=== PATIENT | female | born 1935 | race Caucasian/White ===

== ENCOUNTER 2016-07-12 18:21 | Inpatient (IN) | payer MEDICARE ==
--- NOTE | ~2016-07-12 | CO ---
Unit #: [id number] #: [id number] Patient: TESSIE ARTEAGA [id number] [address] [place], [place] [address] [id number] I MR#: [id number] NAME: TESSIE ARTEAGA. ROOM: 309 Age: 80 Sex: F Admission Date: 07/12/2016 : 1935 Attending Physician: Nicolasa Lilly M.D. Primary Care Physician: Tulio Schreiber D.O. Consultation Date: 07/13/2016 CONSULTATION REPORT CHIEF COMPLAINT Anemia. HISTORY OF PRESENT ILLNESS This is a 80-year-old lady, who has some dementia, who was admitted for severe anemia with a hemoglobin of 4.2. She has been transfused. She denies any abdominal pain or GI bleeding. She does have a history of a polyp with high-grade dysplasia of the right colon that has been resected in the past. PAST MEDICAL HISTORY Significant for hypertension, reflux, dementia, elevated lipids, valvular heart disease. PAST SURGICAL HISTORY She has undergone a prior ileocolic resection. She has also had , cholecystectomy, and multiple hernia repairs. She has also undergone a bladder repair. ALLERGIES She has no known drug allergies. MEDICATIONS Please see med rec list for the list of medications. Her only blood thinner is aspirin. SOCIAL HISTORY She denies any tobacco or alcohol use. FAMILY HISTORY Negative for cancer. REVIEW OF SYSTEMS Limited secondary to dementia. PHYSICAL EXAMINATION VITAL SIGNS: Temperature is 98.2, heart rate 72, respiratory rate 16, blood pressure is 141/71. GENERAL: She is in no acute distress. HEENT: Pupils are equal and reactive to light and accommodation, and her extraocular muscles are intact. NECK: Without masses or bruits. LUNGS: Show good breath sounds bilaterally with equal air exchange. CARDIAC: Shows regular rate and rhythm without murmur. Unit #: [id number] #: [id number] Patient: TESSIE ARTEAGA ABDOMEN: Soft, nondistended, and nontender with no organomegaly. EXTREMITIES: Without edema or cyanosis. NEUROLOGIC: She is alert and oriented. There are no focal deficits. DIAGNOSTIC STUDIES LABORATORY RESULTS: White blood count 10,000, hemoglobin 7.2. Total bilirubin is elevated at 3.2 this morning, which on her prior bilirubin yesterday, she had higher indirect component. Her other LFTs are normal. IMPRESSION This is a lady who has a history of a polyp with high-grade dysplasia. This has been resected as well as a history of other polyps. She has severe anemia and elevated LFTs. PLAN She has already undergone transfusion and her hemoglobin improved to 7.2 this morning. Our plan is to prep her today and set her up for upper and lower endoscopy tomorrow. I will also recheck her bilirubin tomorrow as well as a CEA level. Further recommendations are to follow. Dictated by... Yves Rivera III, M.D. VCL/refugio TD: 07/13/2016 07:07 JOB #: [id number] CONSULTATION REPORT Page 1 of 1 X Yves Rivera III, MD CONSULTATION REPORT
--- NOTE | ~2016-07-12 | CO ---
Unit #: [id number] #: [id number] Patient: TESSIE WYATT [id number] [address] [place], [place] [address] [id number] I MR#: [id number] NAME: TESSIE WYATT ROOM: 309 Age: 80 Sex: F Admission Date: 07/12/2016 : 1935 Attending Physician: Nicolasa Lilly M.D. Primary Care Physician: Tulio Schreiber D.O. Consultation Date: 07/15/2016 CONSULTATION REPORT REASON FOR CONSULTATION Elevated CA level. Iron deficiency anemia; please evaluate. HISTORY OF PRESENT ILLNESS Ms. Tessie Wyatt is 80 years old with a history of hypertension, admitted to the hospital from her primary care physician, Dr. Tulio Schreiber, when she was noted to have a hemoglobin of 4.3. Following admission, she has been transfused packed cells, has undergone an EGD and colonoscopy with the findings of some diverticulosis but no evidence of a bleeding lesion with improvement post transfusion. Her most recent CBC of today shows a hemoglobin of 7.3, an MCV of 70.3 and a platelet count of 252,000. Ms. Wyatt herself is not a good historian and has been a little confused, wandering from room to room today. From history, apparently she has been having shortness of breathing for many months. It is not clear whether she has ice craving or any other pica and tells me she has had anemia in the past, although she wanders off to discuss about (1) allergies. PAST HISTORY History of hypertension, apparently valvular heart disease, gastroesophageal reflux disease, hyperlipidemia, Alzheimer-type dementia. She has a history of multiple colonic polyps, undergoing right hemicolectomy September 19, 2011 with the finding of 5 tubular adenomas. She subsequently, in 2012, had additional polyps removed and, in 2010, underwent the right hemicolectomy with tubular adenoma with high-grade dysplasia in the right colon and the cecum. She has had tubular adenomas also in August of 2010. PAST SURGICAL HISTORY Colectomy, colostomy with reversal, Caesarian section, cholecystectomy, hernia with mesh repair and a bladder repair. ALLERGIES She has no known medication allergies. MEDICATIONS Current medications at admission, from records, are Lasix, Norvasc, isosorbide, atorvastatin, aspirin "81" mg, Aricept 10 mg for her Alzheimer-type dementia, doxazosin, Celexa, Remeron, vitamins C, D, E and B12. SOCIAL HISTORY She is a nonsmoker. Does not drink any alcohol. She lives with her oldest son. Unit #: [id number] #: [id number] Patient: TESSIE WYATT FAMILY HISTORY Family history is negative for bleeding disorders or cancer. REVIEW OF SYSTEMS Somewhat limited because patient is quite confused. CONSTITUTIONAL: Apparently no significant changes in weight. EYES: Negative. EARS, NOSE, MOUTH AND THROAT: Negative. CARDIOVASCULAR: shortness of breathing. No chest pain. RESPIRATORY: Shortness of breathing. GASTROINTESTINAL EXAM: Apparently no changes in bowel habits. GENITOURINARY: Negative. NEUROLOGIC: Forgetfulness. Tendency to wander and a diagnosis of Alzheimer-type dementia. SKIN: Negative. ALLERGIC/LYMPHATIC: Negative. ENDOCRINE: Negative. PSYCHIATRIC: Alzheimer-type dementia. PHYSICAL EXAMINATION GENERAL: She is a very pleasant elderly woman, awake, alert, oriented x2. VITAL SIGNS: Temperature is 98.4, pulse rate 76, respirations 18, blood pressure 139/59. HEENT EXAM: Pupils are equal and react well to light. She is pale but nonicteric. Mucous membranes are moist. NECK: Neck without adenopathy, JVD, thyromegaly. CARDIOVASCULAR SYSTEM: First and second heart sounds are heard and regular with soft systolic murmur. No gallops or rubs. LUNGS: Chest expansion is symmetric. Bilateral equal entry without any adventitious sounds. ABDOMEN: Incisions from multiple previous surgeries are well-healed. No liver or spleen palpable or any other organomegaly. Bowel sounds are active. EXTREMITIES: Extremities are warm with good pulses. No edema, cyanosis or clubbing. NEUROLOGIC: She is awake, alert and oriented x2 without any focal findings. DIAGNOSTIC STUDIES LABS: CBC as mentioned. Basic metabolic panel shows a BUN of 14, creatinine 0.9. CA level is 4.5. CBC at time of admission showed a white count of 8.5, hemoglobin 4.3, platelet count 271, MCV 60.4. ASSESSMENT AND PLAN Ms. Tessie Wyatt is 80 years old with history of mild Alzheimer-type dementia and a history of previous adenomatous polyposis, including a dysplastic polyp removed in 2010 and right hemicolectomy. She is admitted with severe anemia with negative colonoscopy and a history of aspirin "81" mg once daily. Her microcytic indices are certainly consistent with chronic iron deficiency. Her CA level is slightly elevated at 4.5. Discussed the situation with the patient. RECOMMENDATIONS 1. CT scan of the abdomen and pelvis to be done with p.o. and IV contrast in view of elevated CA level and history of multiple polyps. 2. Continue close surveillance for colonic polyps with another endoscopy in 3 years. 3. Ferrlecit 250 mg IV x1. Unit #: [id number] #: [id number] Patient: TESSIE WYATT 4. Ferrous sulfate 324 mg p.o. t.i.d. 5. If discharged, she can follow up as an outpatient. Dictated by... Dario Bains/zach TD: 07/15/2016 13:37 JOB #: [id number] CONSULTATION REPORT Page 1 of 1 X Tye Alexander MD X CONSULTATION REPORT
--- NOTE | ~2016-07-12 | OR ---
Unit #: [id number] #: [id number] Patient: TESSIE ARTEAGA [id number] [address] [place], [place] [address] [id number] I MR#: [id number] NAME: TESSIE ARTEAGA. ROOM: 309 Date of Procedure: 07/14/2016 Admission Date: 07/12/2016 Surgeon: Corby Souza M.D. : 1935 Attending Physician: Nicolasa Lilly M.D. Primary Care Physician: Tulio Schreiber D.O. OPERATIVE REPORT PREOPERATIVE DIAGNOSIS Anemia. POSTOPERATIVE DIAGNOSIS Anemia. PROCEDURES PERFORMED 1. Esophagogastroduodenoscopy. 2. Biopsy of antrum for Helicobacter pylori testing. 3. Colonoscopy to anastomosis in the area of the hepatic flexure. ANESTHESIA Monitored anesthesia care. FINDINGS The patient was found on upper endoscopy to have a large hiatal hernia and mild gastritis. On colonoscopy, the patient was found to have scattered diverticula and a normal anastomosis. SPECIMENS Sent to Pathology. COMPLICATIONS None apparent. CONDITION The patient tolerated the procedure well. INDICATIONS FOR PROCEDURE The patient is a 80-year-old female, who presented with severe anemia with a hemoglobin of 4.2. She presents at this time for evaluation by upper and lower endoscopy. DESCRIPTION OF PROCEDURE After obtaining informed consent, the patient was brought to the endoscopy suite. After adequate monitored anesthesia care, had the endoscope placed through the mouth into the upper esophagus under direct vision. It was advanced to the second portion of the duodenum without difficulty with the lumen always in view. The duodenum was within normal limits as was the duodenal bulb. The pylorus opened normally. There was some mild distal gastritis present and a biopsy was obtained for Helicobacter pylori testing. On retroflexion back to the GE junction, the patient was found Unit #: [id number] #: [id number] Patient: TESSIE ARTEAGA to have a large hiatal hernia. No other abnormalities were found in the proximal third, middle third, or incisura. On pulling back above the GE junction, there was no stenosis, stricture, or neoplasm seen. There was no significant esophagitis. The remaining portion of the esophagus was within normal limits. Laryngeal structures were grossly normal as viewed from above. At this point in time, the colonoscope was placed through the anus and slowly advanced to the level of the anastomosis in the area of the hepatic flexure without difficulty with the lumen always in view. The patient was status post right hemicolectomy. The anastomosis was widely patent and there was no abnormality seen. On pulling back from this area other than a few scattered diverticula, there was no abnormality seen in the transverse colon, splenic flexure, descending colon, sigmoid colon, or rectum. In the anastomosis, there appeared to be large diverticulum or perhaps some type of anastomosis in this area, but there was no abnormality seen other than this. On retroflexing in the rectum to the anorectal junction, there was no abnormality seen. The scope was removed without difficulty. The patient tolerated the procedure well and went from the endoscopy suite to the recovery area in stable condition. RECOMMENDATIONS Resume preop orders and medications and diet of choice and we will have Hematology evaluate the patient for further evaluation of her anemia. Dictated by... Dario Brody/refugio TD: 07/15/2016 07:08 JOB #: [id number] [facility] OPERATIVE REPORT Page 1 of 1 X Corby Souza MD X PROCEDURE OPERATIVE NOTE
--- NOTE | ~2016-07-12 | CT2 ---
[facility] A Service of [facility] RADIOLOGY TEXT RESULTS PATIENT: TESSIE ARTEAGA LOCATION: [facility] 309- : 37 UNIT #: [id number] AGE: [address]: Nicolasa Lilly MD SEX: F ORDER DR: [id number] [facility] [address] [facility]. [place], [place] [address] [id number] MR#: [id number] Acc #: [id number] NAME: TESSIE ARTEAGA. : 1935 SEX: F STUDY DATE/TIME: 07/15/2016 18:40 UNIT: A PCU ROOM: 309 STUDY DESCRIPTION: CT Abd and Pelv W Cont Attending Physician: Nicolasa Lilly M.D. Ordering Physician: Nicolasa Lilly M.D. Primary Care Physician: Tulio Schreiber D.O. MEDICAL IMAGING REPORT This report is preliminary unless electronic signature is present EXAM CT of the abdomen and pelvis with IV contrast. COMPARISON November 08, 2010. INDICATION 80-year-old female with anemia of uncertain etiology. Hemoglobin of 5 on July 12, 2016. History of diverticulitis requiring partial colonic resection and colostomy, post reversal. Prior bladder repair, hernia repair, cholecystectomy and . TECHNIQUE Axial CT imaging of the abdomen and pelvis was performed after IV administration of 100 mm of Isovue-370. Coronal and sagittal reformats were constructed. This CT exam was performed with one or more of the following radiation dose reduction techniques: automatic exposure control, adjustment of mA and/or kV according to patient size, and iterative reconstruction. FINDINGS Apparent fat-containing lesion in the dome of the right hepatic lobe measures up to 6 mm, grossly stable from October 2010, perhaps reflecting small adenoma or focal fat. Changes of cholecystectomy again noted. Changes of anterior abdominal wall hernia repair noted bilaterally. There is stable diastasis of the midline abdominal wall. There is stable abutment of the transverse colon to the inferior midline abdominal wall, suggestive of adhesive disease. No evidence of colonic obstruction. The appendix is not seen and there is suture material at the cecum consistent with prior appendectomy. Prior sigmoid resection is noted. There is normal bowel caliber. No suspicious colonic lesions are seen. There are calcified splenic granulomas. Adrenal glands are within normal limits. Pancreatic head, uncinate process and to a lesser extent the body have STS. [facility] A Service of [facility] RADIOLOGY TEXT RESULTS PATIENT: TESSIE ARTEAGA LOCATION: [facility] 309-01 : 37 UNIT #: [id number] AGE: [address]: Nicolasa Lilly MD SEX: F ORDER DR: somewhat of a hypoattenuating appearance and appear mildly expanded as compared to CT of November 08, 2010. Early pancreatic neoplasm cannot entirely be excluded. Findings are nonspecific. There is no evidence of pancreatic ductal dilatation. No biliary dilatation. No evidence of an acute pancreatitis. There is bilateral renal atrophy. There is an enlarging lesion in the right kidney measuring up to 1.1 cm with indeterminate internal Hounsfield units. This appears to have somewhat of a heterogeneous internal enhancement pattern. There is also enlargement of a low-density lesion in the right kidney separately, measuring up to 7 mm, too small to characterize. There is a low-density lesion in the inferior pole of the left kidney, which is too small to characterize but appears stable from comparison. There is no hydronephrosis or hydroureter. No ureteral calculi. Urinary bladder is unremarkable. CT appearance of the uterus is unremarkable. There are parametrial arterial calcifications. No adnexal masses are seen. No free fluid or pneumoperitoneum. There is diffuse scattered calcification of the abdominal aorta with calcifications involving the long segment of the splenic artery extending into its branches. There are also calcifications the origins of the celiac, superior mesenteric and bilateral renal arteries. No evidence of venous thrombosis. There is likely some degree of stenosis at the origin of the celiac artery due to calcified and noncalcified plaque. There is also likely mild stenosis at the origin of the right renal artery due to calcified plaque. No significant stenosis of the left renal artery. There is normal caliber of the abdominal aorta. No adenopathy in the abdomen or pelvis. There is a large sliding hiatal hernia with internal ingested debris. There is small bilateral pleural effusion not dissimilar to 2010. In the right lower lobe there is a rounded mass measuring up to 3.5 cm x 2.9 cm abutting the pleura. This could conceivably represent round atelectasis but malignancy cannot be excluded. This has irregular margins. This is new from 2011. IMPRESSION 1. Similar appearing bilateral pleural effusions which are small. There is a new rounded mass-like area with irregular margins in the right lung base abutting the pleura measuring up to 3.5 cm x 2.9 cm x 3.1 cm. There is some suggestion of interdigitation of aerated lung and/or internal air bronchograms. This could conceivably represent round atelectasis but is concerning for possible pulmonary mass. Consider further characterization with PET/CT. 2. Partially artifactual, there appears to be mild expansion and geographic hypoattenuation extending from the body of the pancreas to the uncinate process, new from comparison. This is not as well appreciated on the reformats and may represent artifact. Pancreatic neoplasm and this cannot entirely be excluded. Consider MRI with IV contrast for further evaluation. There is no associated pancreatic ductal dilatation and there is no biliary dilatation. Again primary pancreatic neoplasm cannot entirely be excluded. [facility]. [facility] A Service of [facility] RADIOLOGY TEXT RESULTS PATIENT: TESSIE ARTEAGA LOCATION: [facility] 309-01 : 37 UNIT #: [id number] AGE: [address]: Nicolasa Lilly MD SEX: F ORDER DR: 3. Enlarging indeterminate round lesion in the right kidney measuring up to 1.1 cm. This may represent a proteinaceous or hemorrhagic cyst but neoplasm cannot entirely be excluded. Consider CT abdomen with and without contrast to exclude enhancing mass. Stable low-density lesion in inferior pole of the left kidney which is too small to characterize. This likely, however, represents a benign cyst. There is another 7 mm hypoattenuating lesion in the inferior pole of the right kidney which may have increased in size from comparison. This is also too small to characterize but is favored to represent a benign cyst. 4. Prior appendectomy. 5. Large hiatal hernia with internal ingested debris. 6. 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 7. 6 mm fat-containing lesion is stable in the right hepatic lobe, most consistent with an adenoma or possibly focal fat. 8. Changes of anterior abdominal wall hernia repair are stable with stable diastasis of the midline anterior abdominal wall and stable abutment of the transverse colon to the lower anterior abdominal wall suggesting adhesive disease. No evidence of bowel obstruction. Dictated by... Isma Barrera M.D. THIS IS AN ELECTRONICALLY VERIFIED REPORT Isma Barrera M.D. at 07/18/2016 3:25 PM STAR/salome TD: 07/15/2016 23:30 JOB #: [id number] MEDICAL IMAGING REPORT Page 1 of 1 COPY
--- NOTE | ~2016-07-12 | DS ---
Unit #: [id number] #: [id number] Patient: TESSIE ARTEAGA [id number] [address] [address] [id number] I MR#: [id number] NAME: TESSIE ARTEAGA. ROOM: 309 Age: 80 Sex: F Admission Date: 07/12/2016 : 1935 Discharge Date: 07/15/2016 Attending Physician: Nicolasa Lilly M.D. Primary Care Physician: Tulio Schreiber D.O. DISCHARGE SUMMARY DISCHARGE DIAGNOSES 1. GI bleed. 2. Anemia, acute on chronic symptomatic, likely acute blood loss and iron deficiency also. 3. History of fecal mass. 4. Hyperkalemia. 5. Hypertension. 6. History of valvular heart disease. CONSULTANTS Dr. Rivera. PROCEDURES PERFORMED The patient had an EGD and colonoscopy which shows large hiatal hernia and mild gastritis. Colonoscopy shows diverticula. DIAGNOSTIC DATA LABORATORY: Ferritin 9, reticulocyte 4.5, sodium 138, potassium 3.9, creatinine 0.9, white blood cell count 9.4, hemoglobin 7.3, platelets 252, CEA elevated at 4.5. BNP 252. ALLERGIES No known drug allergies. DISCHARGE MEDICATIONS 1. Celexa 20 p.o. daily. 2. Remeron 15 daily. 3. Lipitor 80 daily. 4. Norvasc 5 daily. 5. Aricept 10 daily. 6. Cardura 2 mg p.o. daily. 7. Ferrous sulfate 325 p.o. t.i.d. 8. Aspirin 325 mg p.o. daily. 9. Protonix 40 daily. 10. Imdur ER 30 daily. 11. Vitamin B12 1000 mcg p.o. daily. 12. Vitamin C 1000 mg p.o. daily. 13. Vitamin D3 1000 units p.o. daily. 14. Vitamin E 1000 units daily. HOSPITAL COURSE The patient is a 80-year-old admitted because of anemia. Anemia: Acute on chronic, likely GI bleed and also iron deficiency. The Unit #: [id number] #: [id number] Patient: TESSIE ARTEAGA patient had an EGD and colonoscopy and did not show acute bleeding. History of fecal mass with elevated CEA. The patient is having a CAT scan. The patient was seen by Dr. Alexander. He will follow her as an outpatient. Colonoscopy did not show any mass. Hypokalemia: Replace. Hypertension: Uncontrolled. Continue with home medications. GI bleed: The patient had EGD and colonoscopy which showed hiatal hernia and mild gastritis and diverticula. No active bleeding. Blood pressure received blood transfusion and iron. The patient will continue with the iron tablets at home. DISPOSITION The patient will be discharged home later today after CAT scan of the abdomen is done. FOLLOWUP 1. Follow up with family physician in one week time. 2. Follow up with Dr. Alexander in one week time for followup of CT results. I left a message to her son. Discharge time taken was 31 minutes. Dictated by... Dario Tejada/gayle TD: 07/15/2016 14:20 JOB #: [id number] CC: Tulio Schreiber D.O. DISCHARGE SUMMARY Page 1 of 1 X Nicolsaa Lilly MD X DISCHARGE SUMMARY
--- NOTE | ~2016-07-12 | HP ---
Unit #: [id number] #: [id number] Patient: TESSIE ARTEAGA [id number] [address] [place], [place] [address] [id number] I MR#: [id number] NAME: TESSIE ARTEAGA. ROOM: 69928 Age: 80 Sex: F Admission Date: 07/12/2016 : 1935 Attending Physician: Nicolasa Lilly M.D. Primary Care Physician: Tulio Schreiber D.O. HISTORY AND PHYSICAL CHIEF COMPLAINT Low hemoglobin. HISTORY OF PRESENT ILLNESS A 80-year-old with a history of hypertension admitted because of low hemoglobin. According to her, she went to her family physician and was found to have a hemoglobin of 4.3, so her family physician transferred her to the ER here. Also, according to her, she has been having shortness of breath for many, many months, but she is getting worse to a point where she could not walk a feet without shortness of breath. No chest pain, no nausea or vomiting, no diarrhea, no black-colored stools, and no vomiting of blood. She does complain of dizziness on ambulation especially getting up but no syncope. No leg swelling. PAST MEDICAL HISTORY 1. Hypertension. 2. Valvular heart disease, details unknown. 3. Gastroesophageal reflux disease. 4. Hyperlipidemia. 5. Mild Alzheimer dementia. 6. Cecal mass diagnosed in 2011, status post polypectomy. At that time, patient had colectomy and colostomy later reversed. Patient had a colonoscopy in March 2012 which showed diverticulitis, diverticulosis, hemorrhoids, and colon polyps. PAST SURGICAL HISTORY 1. Colectomy and colostomy. 2. section. 3. Gallbladder. 4. Hernia x2 with mesh placement. 5. Bladder repair. ALLERGIES None. CURRENT HOME MEDICATIONS 1. Lasix 20 mg p.o. b.i.d. 2. Norvasc 5 mg p.o. daily. 3. Isosorbide mononitrate 30 mg daily. 4. Atorvastatin 80 daily. 5. Aspirin 81 daily. 6. Aricept 10 mg daily. 7. Doxazosin 2 mg at bedtime. 8. Citalopram 20 mg daily. Unit #: [id number] #: [id number] Patient: TESSIE ARTEAGA 9. Mirtazapine 15 mg at bedtime. 10. Vitamin C 1000 mg p.o. daily. 11. Vitamin D3 at 1000 international units daily. 12. Vitamin E at 1000 international units daily. 13. Vitamin B12 at 1000 mcg daily. SOCIAL HISTORY No smoking, no alcohol, and no drugs. FAMILY HISTORY Hypertension. REVIEW OF SYSTEMS No visual changes, no weakness, numbness, or tingling, and no skin rash. I reviewed a 12-point system with her which was negative except as in History of Present Illness. PHYSICAL EXAMINATION VITAL SIGNS: Temperature 98.4, pulse 75, respirations 16, and blood pressure 135/45. GENERAL: A 80-year-old lying in bed, alert and oriented x3, mild memory loss present. HEENT: Pupils equally reactive to light and accommodation. Pallor present. Dry mucosa present. NECK: Supple. HEART: S1 and S2 heard, regular rhythm. Systolic murmur present. LUNGS: Clear to auscultation. No crackles. ABDOMEN: Soft and nontender. Bowel sounds are present. EXTREMITIES: No pedal edema. SKIN: No rash. NEUROLOGICAL: Able to move all extremities. Nonfocal. DIAGNOSTIC STUDIES LABORATORY: INR 1.1. Sodium 138, potassium 3, and creatinine 1. Liver enzymes normal. BNP 252. WBC 8.5, hemoglobin 4.3, and platelets 271,000. CARDIOLOGY: EKG shows normal sinus rhythm. ASSESSMENT AND PLAN 1. Anemia, acute on chronic, symptomatic. The patient will receive two units of packed red blood cells. Rule out gastrointestinal bleed. I am going ask surgeon to look at her. 2. Cecal mass history, status post colectomy, currently having bleeding. Patient might need endoscopy. Surgeon to see. 3. Hypokalemia. Replace with oral potassium. 4. Hypertension. Continue with current home medications. 5. History of valvular heart disease. Patient is following with Dr. Ramírez as an outpatient. Currently, EKG is normal. No chest pain. Monitor. 6. I am going to check CBC one hour after the second unit of transfusion. 7. Protonix 40 IV daily. 8. Clear liquid diet and n.p.o. after midnight. Dictated by Dario Tejada/antonina Unit #: [id number] #: [id number] Patient: TESSIE ARTEAGA TD: 07/12/2016 20:16 JOB #: [id number] HISTORY AND PHYSICAL Page 1 of 1 X Nicolasa Lilly MD HISTORY AND PHYSICAL
--- NOTE | ~2016-07-12 | EKG ---
PATIENT: TESSIE ARTEAGA UNIT #: [id number] Ventricular Rate: 70 BPM Atrial Rate: 70 BPM P-R Interval: 128 ms QRS Duration: 120 ms Q-T Interval: 476 ms QTC Calculation(Bezet): 514 ms P [place]: -2 degrees Calculated R [place]: 58 degrees Calculated T [place]: 7 degrees Diagnosis Line: Normal sinus rhythm Diagnosis Line: Right bundle branch block Diagnosis Line: Abnormal ECG Diagnosis Line: When compared with ECG of 26-OCT-2010 09:44, Diagnosis Line: Right bundle branch block is now Present Diagnosis Line: Confirmed by JUAN KELLY MD ([id number]) on Diagnosis Line: 07/12/2016 10:32:01 PM INTERPRETING : REINA
[2016-07-12 17:58] LABS: BASOPHIL# 0.1 X10e3 (0-0.3); BASOPHIL% 0.8 % (0-2.5); EOSINOPHIL% 0.5 % (0.0-7.0); HEMATOCRIT 15.8 % (35.0-45.0); LYMPHOCYTE# 1.1 X10e3 (1.0-3.5); LYMPHOCYTE% 13.4 % (17.0-45.0); MEAN CELL VOLUME 60.4 FL (83-96); MEAN CORPUSCULAR HEMOGLOBIN 16.3 PG (28-34); MEAN CORPUSCULAR HGB CONC 27.1 g/dL (30-36); MEAN PLATELET VOLUME 8.4 FL (6.5-11.5); MONOCYTE# 0.6 X10e3 (0-1.0); MONOCYTE% 7.3 % (3.0-12.0); NEUTROPHIL# 6.7 X10e3 (1.5-7.1); PLATELET COUNT 271 X10e3 (140-420); RED BLOOD COUNT 2.62 X10e (3.90-5.30); RED CELL DISTRIBUTION WIDTH 21.1 % (11.0-15.5); WHITE BLOOD COUNT 8.5 X10e3 (4.0-10.5)
[2016-07-12 18:05] LABS: INR 1.1; PARTIAL THROMBOPLASTIN TIME 21.1 SECONDS (23.5-31.3); PROTHROMBIN TIME (PATIENT) 11.3 SECONDS (9.6-11.5)
[2016-07-12 18:14] LABS: ALBUMIN SERUM 3.6 g/dL (3.5-5.0); BILIRUBIN, DIRECT 0.2 mg/dL (0.0-0.2); BILIRUBIN,INDIRECT 1.2 mg/dL (0.0-0.9); BILIRUBIN,TOTAL 1.4 mg/dL (0.2-2.0); CALCIUM SERUM 8.4 mg/dL (8.4-10.2); GLOM FILT RATE Estimated 53.9 mL/min (>60); PROTEIN TOTAL SERUM 6.2 g/dL (6.0-8.3)
[2016-07-12 18:18] LABS: DIFF IND YES; HEMOGLOBIN 4.3 gm/dL (12.0-16.0)
[~2016-07-12 18:21] MED LIST: ACYCLOVIR PO; ASPIRIN81 M1 PO; ATIVAN PO; BACTRIM DS TABL1 TAB PO; BETIMOL OU; BETOPTIC S15 ML OP; CARDURA PO; CARDURA2 MG PO; CELEXA20 MG PO; CIPRO PO; COLACE PO; CRESTOR PO; DIOVAN; FENOFIBRATE134 MG PO; LASIX; LASIX PO; LEVAQUIN PO; LISINOPRIL; LISINOPRIL PO; LOPRESSOR PO; LYRICA PO; MACROBID 100 M100 MG PO; METHYLPREDNISOLONE; MULTI-VITAMIN1 TAB; MULTIPLE VITAMI1 T11 PO; NIFEREX-150150 MG PO; NORVASC PO; PERCOCET5/325 PO; PREMARIN VAG CR45 GM MC; PRILOSEC PO; PROTONIX; PROTONIX PO; RA COL RITE; RITE-AID PHARMACY; TOPROL XL PO; TRILIPEX PO; TYLOX 5/500 CAP1 CAP; VIT B-12 PO; VITAMIN D; VITAMIN D 4001 UDTAB; VITAMIN D 4001 UDTAB PO; VITAMIN D1000 UNIT; VITAMIN D400 UNI2 PO; ZANTAC
[2016-07-12 18:35] LABS: PLATELET ESTIMATE NORMAL (NORMAL); POIKILOCYTOSIS MOD
[2016-07-12] MEDS ORDERED: CELEXA20 MG PO (18:49)
[2016-07-12] MEDS ORDERED: DOXAZOSIN MESYLA2 MG PO (18:50)
[2016-07-12] MEDS ORDERED: LITE COAT ASPI325 M2 PO (18:50)
[2016-07-12] MEDS ORDERED: IMDUR-ER30 M1 PO (18:51)
[2016-07-12] MEDS ORDERED: VITAMIN B122500 MCG PO (18:52)
[2016-07-12] MEDS ORDERED: LIPITOR80 MG PO (18:52)
[2016-07-12] MEDS ORDERED: LASIX20 MG PO (18:52)
[2016-07-12] MEDS ORDERED: REMERON15 MG PO (18:53)
[2016-07-12] MEDS ORDERED: AMLODIPINE BESYL5 MG PO (18:53)
[2016-07-12] MEDS ORDERED: ARICEPT PO (18:54)
[2016-07-13 03:49] LABS: BASOPHIL# 0.1 X10e3 (0-0.3); BASOPHIL% 0.7 % (0-2.5); DIFF IND NO; EOSINOPHIL# 0.2 X10e3 (0-0.7); EOSINOPHIL% 1.9 % (0.0-7.0); HEMATOCRIT 24.3 % (35.0-45.0); HEMOGLOBIN 7.2 gm/dL (12.0-16.0); LYMPHOCYTE# 1.6 X10e3 (1.0-3.5); MEAN CELL VOLUME 69.8 FL (83-96); MEAN CORPUSCULAR HEMOGLOBIN 20.7 PG (28-34); MEAN CORPUSCULAR HGB CONC 29.7 g/dL (30-36); MEAN PLATELET VOLUME 8.6 FL (6.5-11.5); MONOCYTE# 0.8 X10e3 (0-1.0); MONOCYTE% 7.8 % (3.0-12.0); NEUTROPHIL# 8.1 X10e3 (1.5-7.1); NEUTROPHIL% 74.6 % (40-75); PLATELET COUNT 235 X10e3 (140-420); RED BLOOD COUNT 3.49 X10e (3.90-5.30); RED CELL DISTRIBUTION WIDTH 29.7 % (11.0-15.5); WHITE BLOOD COUNT 10.9 X10e3 (4.0-10.5)
[2016-07-13 04:24] LABS: ALBUMIN SERUM 3.3 g/dL (3.5-5.0); BILIRUBIN,TOTAL 3.2 mg/dL (0.2-2.0); BUN/CREATININE RATIO 17.5; CALCIUM SERUM 8.4 mg/dL (8.4-10.2); CREATININE SERUM 0.8 mg/dL (0.6-1.4); GLOM FILT RATE Estimated 70.7 mL/min (>60); POTASSIUM 3.8 mmol/L (3.5-5.1); PROTEIN TOTAL SERUM 5.7 g/dL (6.0-8.3)
[2016-07-14 07:25] LABS: HEMATOCRIT 26.1 % (35.0-45.0); HEMOGLOBIN 7.7 gm/dL (12.0-16.0); MEAN CORPUSCULAR HEMOGLOBIN 20.6 PG (28-34); MEAN CORPUSCULAR HGB CONC 29.4 g/dL (30-36); MEAN PLATELET VOLUME 8.6 FL (6.5-11.5); RED BLOOD COUNT 3.72 X10e (3.90-5.30); RED CELL DISTRIBUTION WIDTH 29.3 % (11.0-15.5); WHITE BLOOD COUNT 8.6 X10e3 (4.0-10.5)
[2016-07-14 07:55] LABS: ALBUMIN SERUM 3.3 g/dL (3.5-5.0); BILIRUBIN, DIRECT 0.3 mg/dL (0.0-0.2); BILIRUBIN,INDIRECT 1.5 mg/dL (0.0-0.9); BILIRUBIN,TOTAL 1.8 mg/dL (0.2-2.0); BUN/CREATININE RATIO 12.5; CALCIUM SERUM 8.1 mg/dL (8.4-10.2); CREATININE SERUM 0.8 mg/dL (0.6-1.4); GLOM FILT RATE Estimated 70.7 mL/min (>60); POTASSIUM 3.6 mmol/L (3.5-5.1); PROTEIN TOTAL SERUM 5.8 g/dL (6.0-8.3)
[2016-07-15 05:31] LABS: HEMATOCRIT 25.3 % (35.0-45.0); HEMOGLOBIN 7.3 gm/dL (12.0-16.0); MEAN CELL VOLUME 70.3 FL (83-96); MEAN CORPUSCULAR HEMOGLOBIN 20.3 PG (28-34); MEAN CORPUSCULAR HGB CONC 28.9 g/dL (30-36); MEAN PLATELET VOLUME 8.4 FL (6.5-11.5); RED BLOOD COUNT 3.59 X10e (3.90-5.30); RED CELL DISTRIBUTION WIDTH 30.7 % (11.0-15.5); WHITE BLOOD COUNT 9.4 X10e3 (4.0-10.5)
[2016-07-15 06:48] LABS: BUN/CREATININE RATIO 15.55; CALCIUM SERUM 8.4 mg/dL (8.4-10.2); CREATININE SERUM 0.9 mg/dL (0.6-1.4); GLOM FILT RATE Estimated 61.3 mL/min (>60); POTASSIUM 3.9 mmol/L (3.5-5.1)
[2016-07-15 14:12] LABS: IRON SERUM 19 ug/dL (28-170); TOTAL IRON BINDING CAPACITY 467 ug/dL (269-535); TRANSFERRIN 333 mg/dL (192-382); TRANSFERRIN SATURATION 4 % (20-50)
[2016-07-15] MEDS ORDERED: FERRO-TIME325 MG PO (15:19)
[2016-07-15] MEDS ORDERED: PROTONIX PO (15:20)
[2016-08-16] MEDS ORDERED: LASIX20 MG PO (12:37)
[2016-08-16] MEDS ORDERED: K-TAB ER8 MEQ (12:40)
[2016-08-16] MEDS ORDERED: VITAMIN E1000 UNI1 PO (12:46)
[2016-08-16] MEDS ORDERED: VITAMIN C1000 M2 PO (12:46)
[2016-08-16] MEDS ORDERED: VITAMIN D31000 UNIT PO (12:46)
== END 2016-07-15 19:25 | disposition home or self-care (01) | DRG 378 ==
LOC: CED 18:21 → CEDOF 18:43 → C3A PCU 21:36
PROVIDERS: Emergency Medicine; Internal Medicine; Surgery
PROC: 0DB78ZX Excision of Stomach, Pylorus, Via Natural or Artificial Opening Endoscopic, Diagnostic (ICD-10-PCS; principal; 2016-07-12)
PROC: 30233N1 Transfusion of Nonautologous Red Blood Cells into Peripheral Vein, Percutaneous Approach (ICD-10-PCS; 2016-07-12)
PROC: 0DJD8ZZ Inspection of Lower Intestinal Tract, Via Natural or Artificial Opening Endoscopic (ICD-10-PCS; 2016-07-14 15:00)
DX: K92.2 Gastrointestinal hemorrhage, unspecified (principal); D62 Acute posthemorrhagic anemia; G30.9 Alzheimer's disease, unspecified; I10 Essential (primary) hypertension; F02.80 Dementia in other diseases classified elsewhere, unspecified severity, without behavioral disturbance, psychotic disturbance, mood disturbance, and anxiety; K44.9 Diaphragmatic hernia without obstruction or gangrene; K29.70 Gastritis, unspecified, without bleeding; K57.90 Diverticulosis of intestine, part unspecified, without perforation or abscess without bleeding; E87.6 Hypokalemia; Z86.010 Personal history of colon polyps; K21.9 Gastro-esophageal reflux disease without esophagitis; E78.5 Hyperlipidemia, unspecified; Z79.82 Long term (current) use of aspirin; Z90.49 Acquired absence of other specified parts of digestive tract; Z82.49 Family history of ischemic heart disease and other diseases of the circulatory system
CPT/HCPCS: 36415; 36430; 74177; 80048; 80053; 80076; 82247; 82248; 82378; 82728; 83540; 83550; 83880; 85025; 85027; 85044; 85610; 85730; 86850; 86900; 86901; 86923; 87077; 93005; 94760; 99291; C9113; J2250; J2916; P9016; Q9967

== ENCOUNTER → 2016-08-17 | Outpatient (CLI) | payer MEDICARE ==
[~2016-08-17] MED LIST changes: +AMLODIPINE BESYL5 MG PO; +ARICEPT PO; +DOXAZOSIN MESYLA2 MG PO; +FERRO-TIME325 MG PO; +IMDUR-ER30 M1 PO; +K-TAB ER8 MEQ; +LASIX20 MG PO; +LIPITOR80 MG PO; +LITE COAT ASPI325 M2 PO; +REMERON15 MG PO; +VITAMIN B122500 MCG PO; +VITAMIN C1000 M2 PO; +VITAMIN D31000 UNIT PO; +VITAMIN E1000 UNI1 PO
--- NOTE | ~2016-08-17 | CR71 ---
[facility] A Service of [facility] & [facility] RADIOLOGY TEXT RESULTS PATIENT: TESSIE ARTEAGA LOCATION: [facility] : 37 UNIT #: [id number] AGE: [address]: Tye Alexander MD SEX: F ORDER DR: [id number] [facility] [address] [place], [place] [address] [id number] O MR#: [id number] Acc #: [id number] NAME: TESSIE ARTEAGA : 1935 SEX: F STUDY DATE/TIME: 08/17/2016 13:03 UNIT: [facility] ROOM: STUDY DESCRIPTION: CR Chest Single View Attending Physician: Tye Alexander M.D. Ordering Physician: Tye Alexander M.D. Primary Care Physician: Tulio Schreiber D.O. MEDICAL IMAGING REPORT This report is preliminary unless electronic signature is present EXAM Portable chest INDICATIONS Followup lung biopsy today. Comparison with earlier today. FINDINGS Improved inspiratory volume. No evidence for pneumothorax. Heart size stable. IMPRESSION No evidence for pneumothorax. Dictated by... Jake Jordan M.D. THIS IS AN ELECTRONICALLY VERIFIED REPORT Jake Jordan M.D. at 08/18/2016 7:15 AM LUIS/frank TD: 08/17/2016 23:12 JOB #: [id number] MEDICAL IMAGING REPORT Page 1 of 1 COPY
--- NOTE | ~2016-08-17 | CR71 ---
[facility] A Service of [facility] & [facility] RADIOLOGY TEXT RESULTS PATIENT: TESSIE ARTEAGA [facility]: [facility] : 37 UNIT #: [id number] AGE: [address]: Tye Alexander MD SEX: F ORDER DR: [id number] [facility] [address] [facility]. [place], [place] [address] [id number] O MR#: [id number] Acc #: [id number] NAME: TESSIE ARTEAGA : 1935 SEX: F STUDY DATE/TIME: 08/17/2016 11:07 UNIT: [facility] ROOM: STUDY DESCRIPTION: CR Chest Single View Attending Physician: Tye Alexander M.D. Ordering Physician: Tye Alexander M.D. Primary Care Physician: Tulio Schreiber D.O. MEDICAL IMAGING REPORT This report is preliminary unless electronic signature is present EXAM Portable chest INDICATIONS Followup lung biopsy today. Right lung biopsy. Comparison with 10/26/2010 FINDINGS There is low-volume inspiration. There is no appreciable pneumothorax. Heart size stable. Atherosclerotic calcification aorta. IMPRESSION No evidence of pneumothorax Dictated by... Jake Jordan M.D. THIS IS AN ELECTRONICALLY VERIFIED REPORT Jake Jordan M.D. at 08/18/2016 7:14 AM LUIS/fidel TD: 08/17/2016 14:54 JOB #: [id number] MEDICAL IMAGING REPORT Page 1 of 1 COPY
--- NOTE | ~2016-08-17 | CT134 ---
[facility] A Service of [facility] RADIOLOGY TEXT RESULTS PATIENT: TESSIE ARTEAGA LOCATION: [facility] : 37 UNIT #: [id number] AGE: [address]: Tye Alexander MD SEX: F ORDER DR: [id number] [address] [address] [id number] O MR#: [id number] Acc #: [id number] NAME: TESSIE ARTEAGA : 1935 SEX: F STUDY DATE/TIME: 08/17/2016 10:26 UNIT: [facility] ROOM: STUDY DESCRIPTION: CT Guide Attending Physician: Tye Alexander M.D. Ordering Physician: Tye Alexander M.D. Primary Care Physician: Tulio Schreiber D.O. MEDICAL IMAGING REPORT This report is preliminary unless electronic signature is present PROCEDURE CT-guided right lung mass biopsy INDICATION Mass in the right lung suspicious for malignancy. Biopsy requested. MEDICATION IV Versed and Fentanyl were utilized for conscious sedation. Approximately 50 minutes of sedation time was monitored by appropriately credentialed radiology nursing staff. Risks, benefits, and alternatives of the procedure discussed with the patient and informed consent was obtained. In the procedure room a timeout was performed confirming correct patient and procedure. All elements of maximum sterile-barrier technique utilized according to guidelines appropriate for the procedure. TECHNIQUE/FINDINGS The patient was placed in the right lateral position and preliminary CT scan was performed identifying the mass in the right lower lobe. The overlying skin was prepped and draped in the usual sterile fashion. 1% lidocaine utilized to anesthetize the skin and underlying subcutaneous tissues. Next under CT guidance, a 17-gauge guide needle was advanced into the mass. Through this access, 2 core biopsies were obtained with an 18-gauge needle and samples sent to pathology. Needle was removed and a sterile dressing was applied. Postprocedure CT demonstrated no evidence of pneumothorax. IMPRESSION Technically successful CT-guided right lung biopsy. [facility] A Service [facility] RADIOLOGY TEXT RESULTS PATIENT: TESSIE ARTEAGA LOCATION: [facility] : 37 UNIT #: [id number] AGE: [address]: Tye Alexander MD SEX: F ORDER DR: Dictated by... Jake Jordan M.D. THIS IS AN ELECTRONICALLY VERIFIED REPORT Jake Jordan M.D. at 08/18/2016 7:16 AM LUIS/faye TD: 08/18/2016 00:23 JOB #: [id number] MEDICAL IMAGING REPORT Page 1 of 1 COPY
[2016-08-17 08:19] LABS: BASOPHIL# 0.1 X10e3 (0-0.3); EOSINOPHIL# 0.3 X10e3 (0-0.7); EOSINOPHIL% 3.5 % (0.0-7.0); HEMATOCRIT 40.4 % (35.0-45.0); HEMOGLOBIN 12.7 gm/dL (12.0-16.0); LYMPHOCYTE# 1.7 X10e3 (1.0-3.5); LYMPHOCYTE% 18.6 % (17.0-45.0); MEAN CELL VOLUME 84.1 FL (83-96); MEAN CORPUSCULAR HEMOGLOBIN 26.5 PG (28-34); MEAN CORPUSCULAR HGB CONC 31.5 g/dL (30-36); MONOCYTE# 0.7 X10e3 (0-1.0); MONOCYTE% 7.6 % (3.0-12.0); NEUTROPHIL# 6.4 X10e3 (1.5-7.1); NEUTROPHIL% 69.3 % (40-75); PLATELET COUNT 205 X10e3 (140-420); RED CELL DISTRIBUTION WIDTH 25.6 % (11.0-15.5); WHITE BLOOD COUNT 9.3 X10e3 (4.0-10.5)
[2016-08-17 08:20] LABS: DIFF IND YES
[2016-08-17 08:26] LABS: PARTIAL THROMBOPLASTIN TIME 24.5 SECONDS (23.5-31.3); PROTHROMBIN TIME (PATIENT) 10.7 SECONDS (9.6-11.5)
[2016-08-17 09:37] LABS: ANISOCYTOSIS MOD; PLATELET ESTIMATE NORMAL (NORMAL); POIKILOCYTOSIS SL; RBC NORMAL YES
[2016-08-17 09:38] LABS: MICROCYTOSIS SL
== END | disposition home or self-care (01) ==
LOC: CIVR 07:43 → CCAT 10:00
PROVIDERS: Internal Medicine Hematology & Oncology
DX: R91.1 Solitary pulmonary nodule (principal); D50.9 Iron deficiency anemia, unspecified; Q61.00 Congenital renal cyst, unspecified
CPT/HCPCS: 36415; 71010; 77012; 85025; 85610; 85730; 88305; 88341; 88342; J2250; J3010

== ENCOUNTER → 2016-08-31 | Outpatient (CLI) | payer MEDICARE ==
--- NOTE | ~2016-08-31 | MR17 ---
[facility] A Service [facility] RADIOLOGY TEXT RESULTS PATIENT: TESSIE ARTEAGA LOCATION: [facility] : 37 UNIT #: [id number] AGE: [address]: Tye Alexander MD SEX: F ORDER DR: [id number] [facility] [address] [facility]. [place], [place] [address] [id number] O MR#: [id number] Acc #: [id number] NAME: TESSIE ARTEAGA. : 1935 SEX: F STUDY DATE/TIME: 08/31/2016 20:34 UNIT: [facility] ROOM: STUDY DESCRIPTION: MR Brain WWo Contrast Attending Physician: Tye Alexander M.D. Ordering Physician: Tye Alexander M.D. Primary Care Physician: Tulio Schreiber D.O. MRI CENTER REPORT This report is preliminary unless electronic signature is present. EXAM Brain MRI with and without contrast HISTORY Hoarseness developing over the past 5-6 years. Lung cancer. Evaluate for brain malignancy suspected. TECHNIQUE Multiplanar imaging of the brain was performed with and without contrast. 12 mL of MultiHance was used. FINDINGS On diffusion weighted imaging, there is no evidence of abnormal restricted diffusion to suggest a recent infarct. The routine brain images show an empty sella configuration. Generalized atrophy is seen and moderately severe chronic ischemic changes are noted around the ventricles. There are mild chronic ischemic changes in the mid [place]. There is no evidence of mass lesion, hemorrhage or edema. The temporal lobes are symmetric. There is relatively more temporal lobe atrophy in an Alzheimer's type pattern. Postcontrast imaging shows no abnormal enhancement. No evidence of intracranial metastatic disease. IMPRESSION Generalized atrophy most prominent in the medial temporal lobes. Chronic ischemic changes around the ventricles bilaterally and to a lesser extent in the mid [place]. 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 There is no evidence of intracranial metastatic disease. No acute findings are identified. Dictated by... Tulio Rubio M.D. [facility] A Service of [facility] RADIOLOGY TEXT RESULTS PATIENT: TESSIE ARTEAGA [facility] : 37 UNIT #: [id number] AGE: [address]: Tye Alexander MD SEX: F ORDER DR: THIS IS AN ELECTRONICALLY VERIFIED REPORT Tulio Rubio M.D. at 09/02/2016 3:52 PM BRONSON/jonas TD: 09/02/2016 09:49 JOB #: [id number] MRI CENTER REPORT Page 1 of 1 COPY
[2016-08-31 20:31] LABS: POC - CREATININE 1.03 mg/dL (0.44-1.03)
== END | disposition home or self-care (01) ==
LOC: CMRI 18:21
PROVIDERS: Internal Medicine Hematology & Oncology
DX: D64.9 Anemia, unspecified (principal); R91.1 Solitary pulmonary nodule; Q61.00 Congenital renal cyst, unspecified; C34.31 Malignant neoplasm of lower lobe, right bronchus or lung; G31.9 Degenerative disease of nervous system, unspecified
CPT/HCPCS: 70553; 82565; A9577

== ENCOUNTER → 2016-10-18 | Outpatient (CLI) | payer MEDICARE ==
--- NOTE | ~2016-10-18 | CT55 ---
[facility] A Service of [facility] RADIOLOGY TEXT RESULTS PATIENT: TESSIE ARTEAGA LOCATION: [facility] : 37 UNIT #: [id number] AGE: [address]: Haider Phillips MD SEX: F ORDER DR: [id number] [facility] [address] [facility]. [place], [place] [address] [id number] O MR#: [id number] [facility] #: [id number] NAME: TESSIE ARTEAGA : 1935 SEX: F STUDY DATE/TIME: 10/18/2016 10:50 UNIT: [facility] ROOM: STUDY DESCRIPTION: CT Chest W Con Attending Physician: Haider Phillips M.D. Referring Physician: Haider Phillips M.D. Ordering Physician: Haider Phillips M.D. Primary Care Physician: Tulio Schreiber D.O. MEDICAL IMAGING REPORT This report is preliminary unless electronic signature is present EXAM CT chest with contrast INDICATIONS Restaging lung cancer. Observation for disease progression and response to therapy. PROCEDURE Contrast-enhanced CT of the chest. COMPARISON: PET/CT 08/04/[address] exam was performed with one or more of the following radiation dose reduction techniques: automatic exposure control, adjustment of mA and/or kV according to patient size, and iterative reconstruction. FINDINGS Spiculated pleural-based mass posterolateral right lower lobe measures 3.4 x 2.3 cm previously 3.8 x 2.6 cm. The periphery of the mass are slightly less dense than on the previous study. 5 mm right apical nodule is unchanged. No new nodules. No adenopathy. Scattered coronary artery calcification. Moderate sized hiatal hernia. No acute findings in the included upper abdomen. No aggressive appearing bone lesion. IMPRESSION 1. Mass in the posterolateral right lower lobe is slightly smaller and the periphery is slightly less dense than on the 08/04/2016 study. Measurements as above as above. 2. There is a stable 5 mm nodule in the right apex. 3. No evidence for disease progression. [facility] A Service [facility] RADIOLOGY TEXT RESULTS PATIENT: TESSIE ARTEAGA LOCATION: [facility] : 37 UNIT #: [id number] AGE: [address]: Haider Phillips MD SEX: F ORDER DR: Dictated by... Jin Medeiros M.D. THIS IS AN ELECTRONICALLY VERIFIED REPORT Jin Medeiros M.D. at 10/18/2016 5:00 PM TAMIE/gail TD: 10/18/2016 15:01 JOB #: [id number] MEDICAL IMAGING REPORT Page 1 of 1 COPY
[2016-10-18 13:26] LABS: POC - CREATININE 1.01 mg/dL (0.44-1.03)
== END | disposition home or self-care (01) ==
LOC: CCAT 09:49
PROVIDERS: Radiology Radiation Oncology
DX: C34.31 Malignant neoplasm of lower lobe, right bronchus or lung (principal); R91.1 Solitary pulmonary nodule
CPT/HCPCS: 71260; 82565; Q9967